=== PATIENT | male | born 1990 | race Hispanic/Latino ===

== ENCOUNTER 2022-12-21 17:28 | Emergency (ER) | payer SELFPAY ==
[2022-12-21] VITALS (8 sets, daily range): BP systolic 122–153; BP diastolic 79–116
[2022-12-21] MEDS ORDERED: PREDNISONE20 MG PO (19:59)
[2022-12-21] MEDS ORDERED: METHOCARBAMOL500 MG PO (19:59)
[2022-12-21] MEDS ORDERED: NAPROXEN500 MG PO (19:59)
== END 2022-12-21 20:25 | disposition home or self-care (01) | DRG 552 ==
LOC: ED 17:28
DX: M54.16 Radiculopathy, lumbar region (principal); M54.50 Low back pain, unspecified